=== PATIENT | male | born 1960 | race Caucasian/White ===

== ENCOUNTER 2020-06-17 11:00 | Outpatient (CLI) | payer OTHER, SELFPAY | END 2020-06-17 11:01 | disposition home or self-care (01) | LOC: SLEEP 06-18 14:13 | PROVIDERS: PCP Nurse Practitioner; Visit Provider Nurse Practitioner | DX: G47.30 Sleep apnea, unspecified (principal); F51.5 Nightmare disorder | CPT/HCPCS: 94762 ==